=== PATIENT | male | born 1955 | race Caucasian/White ===

== ENCOUNTER 2018-05-04 11:37 | Inpatient (IN) | payer MEDICARE, BC ==
[~2018-05-04] VITALS: Ht 175.3 cm; Wt 60.7 kg
[2018-05-04] VITALS (8 sets, daily range): BP systolic 99–128; BP diastolic 21–75
[2018-05-04] MEDS ORDERED: XANAX1 MG PO (11:47)
[2018-05-04] MEDS ORDERED: AMOXICILLIN 50500 MG PO (11:47)
[2018-05-04] MEDS ORDERED: ASPIR 8181 MG PO (11:47)
[2018-05-04] MEDS ORDERED: INCRUSE ELLI62.5 MCG INH (11:48)
[2018-05-04] MEDS ORDERED: ROSADAN45 GM TOP (11:48)
[2018-05-04] MEDS ORDERED: CLOTRIMAZOLE 1%15 G1 TOP (11:48)
[2018-05-04] MEDS ORDERED: ELOCON15 G1 TOP (11:49)
[2018-05-04] MEDS ORDERED: SYMBICORT160 MCG/4. INH (11:49)
[2018-05-04] MEDS ORDERED: VITAMIN D3400 UNIT PO (11:50)
[2018-05-04] MEDS ORDERED: VENTOLIN HFA 1818 GM INH (11:50)
[2018-05-04 12:04] LABS: HEMATOCRIT 43.3 % (42.0-52.0); HEMOGLOBIN 13.8 gm/dL (14.0-18.0); MCH 29.7 pg (26.0-34.0); MCHC 31.8 g/dL (28.0-37.0); MCV 93.4 fL (80.0-100.0); MPV 9.4 fl. (7.2-11.1); NUCLEATED RBCS 0 /100WBC; PLATELET COUNT* 192 thou/uL (150-400); RBC 4.63 mil/uL (4.50-6.00); RDW-CV 13.4 % (10.5-14.5); WBC 7.5 thou/uL (4.0-11.0)
--- NOTE | 2018-05-04 12:14 | NUR ---
WHEN DR. CHANDLER ASKED THE PATIENT IF HE WOULD GIVE CONSENT TO BEING INTUBATED IF THAT WERE TO HAPPEN, THE PATIENT REFUSED BY SAYING, "I DO NOT WANT TO BE INTUBATED. I DO NOT WANT TO BE RESUSCITATED."
[2018-05-04 12:31] LABS: URINE BILIRUBIN NEGATIVE (Negative); URINE BLOOD 1+ (Negative); URINE CLARITY CLEAR; URINE COLOR DARK YELLOW; URINE GLUCOSE-RANDOM NEGATIVE (Negative); URINE KETONES 1+ (Negative); URINE LEUKOCYTES-REFLEX NEGATIVE (Negative); URINE NITRITE-REFLEX NEGATIVE (Negative); URINE PROTEIN NEGATIVE (Negative); URINE SPECIFIC GRAVITY >= 1.030 (1.005-1.030); URINE UROBILINOGEN 0.2 E.U./dl (0.2-1.0)
[2018-05-04 12:32] LABS: BUN 13 mg/dL (7-18); CALCIUM 8.9 mg/dL (8.5-10.1); CHLORIDE 91 mmol/L (98-107); CREATININE 0.6 mg/dL (0.6-1.3); GLUCOSE 171 mg/dL (70-99); POTASSIUM 4.5 mmol/L (3.5-5.1); SODIUM 135 mmol/L (136-145)
[2018-05-04 12:33] LABS: CO2 > 45 mmol/L (21-32)
[2018-05-04 12:37] LABS: ALKALINE PHOSPHATASE 101 U/L (46-116); MAGNESIUM 1.8 mg/dL (1.8-2.4); SGOT 26 U/L (15-37); SGPT 48 U/L (30-65); TOTAL BILIRUBIN 0.5 mg/dL (<0.1-1.0); TOTAL PROTEIN 7.4 g/dL (6.4-8.2)
[2018-05-04 12:40] LABS: BACTERIA-REFLEX 1-9 Few /HPF (None Seen); CASTS None Seen /LPF (None Seen); CRYSTALS None Seen /LPF (None Seen); SQUAMOUS 0-3 Few /LPF (0-3); URINE RBC 3-10 Few /HPF (0-2); URINE WBC-REFLEX 0-5 Rare /HPF (0-5)
[2018-05-04 12:51] LABS: ABSOLUTE LYMPHOCYTES 0.3 thou/uL (0.8-5.3); ABSOLUTE MONOCYTES 0.2 thou/uL (0.0-1.2); ABSOLUTE NEUTROPHILS 7.1 thou/uL (1.6-8.1); ATYPICAL LYMPHS 1 %; PLATELET ESTIMATE ADEQUATE
[2018-05-04 12:58] LABS: BE 15.5 mmol/L (-2 to +3)
[2018-05-04 12:59] LABS: HCO3 49.7 mmol/L (22.0-26.0); PCO2 131.8 mmHg (35.0-45.0); PO2 216.4 mmHg (75.0-100.0); pH 7.194 (7.340-7.450)
[2018-05-04 14:56] LABS: BE 11.5 mmol/L (-2 to +3); PO2 75.5 mmHg (75.0-100.0); pH 7.268 (7.340-7.450)
[2018-05-04 14:59] LABS: HCO3 42.6 mmol/L (22.0-26.0); PCO2 95.4 mmHg (35.0-45.0)
--- NOTE | 2018-05-04 15:11 | EKG ---
[place] [address] ELECTROCARDIOGRAM REPORT Name: BRIONNA RACHEL Room: [address] ADM IN .R.#: [id number] Admission: 05/04/18 Attend Phys: Bethany Bajwa MD Discharge: Date of : 55 Report #: [id number] THIS REPORT FOR: //name// [facility] ED Test Date: 2018-05-04 Test Time: 11:50:17 Pat Name: BRIONNA RACHEL Department: Room: [facility] Gender: M Senior Market Intelligence Consultant: HAWK : 1955 Requested By: GERALDINE Order Number: [id number] Tatum MD: Link Reis Measurements Intervals [place] Rate: 101 P: 87 AR: 133 QRS: 71 QRSD: 86 T: 32 QT: 343 QTc: 445 Interpretive Statements Sinus tachycardia Consider right atrial enlargement Baseline wander in lead(s) V5 No previous ECG available for comparison Electronically Signed On 05-04-2018 15:11:49 RESTAURANT ASSOCIATE by Link Reis [email or web address] <ELECTRONICALLY SIGNED> By: Link Reis MD, [facility] 05/04/18 1511 1150 1150 Link Reis MD, FAC /EPI
--- NOTE | 2018-05-04 19:32 | NUR ---
CATHETER PLACED BY DR PENA, UROLOGY, WITH SOME BLEEDING. SPOKE TO DR PENA REGARDING LOVENOX AND ASA 81MG ORDERED TO BE GIVEN THIS EVENING, HE STATES OK TO GIVE.
[2018-05-05] VITALS (22 sets, daily range): BP systolic 102–156; BP diastolic 43–90
[2018-05-05 04:43] LABS: HEMATOCRIT 39.1 % (42.0-52.0); HEMOGLOBIN 12.7 gm/dL (14.0-18.0); MCH 29.6 pg (26.0-34.0); MCHC 32.4 g/dL (28.0-37.0); MCV 91.6 fL (80.0-100.0); MPV 9.2 fl. (7.2-11.1); RBC 4.27 mil/uL (4.50-6.00); RDW-CV 13.1 % (10.5-14.5); WBC 9.3 thou/uL (4.0-11.0)
[2018-05-05 05:27] LABS: ALBUMIN 3.6 g/dL (3.4-5.0); CALCIUM 9.3 mg/dL (8.5-10.1); CREATININE 0.5 mg/dL (0.6-1.3); MAGNESIUM 1.8 mg/dL (1.8-2.4); POTASSIUM 4.7 mmol/L (3.5-5.1); TOTAL BILIRUBIN 0.7 mg/dL (<0.1-1.0); TOTAL PROTEIN 6.2 g/dL (6.4-8.2)
--- NOTE | 2018-05-05 05:48 | NUR ---
VSS. TOLERATED BIPAP WELL THROUGHOUT THE NIGHT. SOME ANXIETY R/T MASK, SCHEDULED XANAX AND PRN ATIVAN GIVEN ORDERED WITH RELIEF OF SYMPTOMS. PT HAS DENIED PAIN. O2 SAT DROPS TO 80'S WHEN BIPAP REMOVED FOR MORE THAN A FEW MINUTES FOR MEDICATION ADMINISTRATION AND ORAL CARE. PT REPOSITIONS SELF IN BED, STATES HE PREFERS LEFT SIDE WORK OF BREATHING IS LESS ON LEFT. EDUCATION PROVIDED ON PRESSURE RELIEF, VERBALIZED UNDERSTANDING. ADEQUATE STRENGTH IN UPPER AND LOWER EXTREMITIES TO SIT SELF VERTICALLY AND LIFT BODY ON ARMS TO MOVE IN BED. CALL LIGHT WITHIN REACH.
[2018-05-05 09:17] LABS: BE 16.7 mmol/L (-2 to +3); PO2 86.4 mmHg (75.0-100.0); pH 7.385 (7.340-7.450)
[2018-05-05 09:23] LABS: HCO3 45.7 mmol/L (22.0-26.0); PCO2 78.1 mmHg (35.0-45.0)
--- NOTE | 2018-05-05 16:02 | NUR ---
Received order for PICC placement. Consent obtained per PACKING MACHINE PILOT CAN ROUTER. Chart and labs reviewed. Pt placed in supine position and a sterile field placed as per facility guidelines. (R) UA cleansed as per guideline and [place] 1% given subq. Venous access obtained via US and guidewire introduced without problems. PICC cut and introduced into the vessel with electronic prepress technician. Placement confirmed with 3ecg technology. Pt prior to procedure tachcardic and per ecg hard to confirm pwaves. PICC secured and a PCXR ordered.
--- NOTE | 2018-05-05 16:33 | NUR ---
PICC IN THE LOWER MID C AND IS CLEARED FOR IMMEDIATE USE. POULTRY OFFAL WORKER REMY MELVIN.
[2018-05-05 22:35] LABS: BE 12.5 mmol/L (-2 to +3); pH 7.322 (7.340-7.450)
[2018-05-05 22:37] LABS: HCO3 42.1 mmol/L (22.0-26.0); PCO2 83.3 mmHg (35.0-45.0); PO2 243.7 mmHg (75.0-100.0)
--- NOTE | 2018-05-05 23:02 | NUR ---
AT 2150, PT O2 SAT DROPPED TO 76% WHILE ON BIPAP. PT OBSERVED BEING IN SUPINE POSITION, USING ACCESSORY MUSCLES STRUGGLING TO BREATHE. PT PLACED ON NONREBREATHER MASK AT 15L. RESPIRATORY PAGED IMMEDIATELY. STAT CXR ORDERED, STAT ABGS ORDERED. RESULTS RECEIVED, DR. SWANSON NOTIFIED AT 2301. PT TO HAVE CXR AND REPEAT ABGS IN AM. OK FOR PATIENT TO BE ON AVAPS MODE. PT'S VSS AT THIS TIME. RESPIRATORY IN ROOM WITH PATIENT.
[2018-05-06] VITALS (12 sets, daily range): BP systolic 119–136; BP diastolic 72–91
[2018-05-06 04:57] LABS: HEMOGLOBIN 11.3 gm/dL (14.0-18.0); MCH 29.4 pg (26.0-34.0); MCHC 31.3 g/dL (28.0-37.0); MCV 93.8 fL (80.0-100.0); MPV 10.6 fl. (7.2-11.1); RBC 3.84 mil/uL (4.50-6.00); RDW-CV 13.6 % (10.5-14.5)
[2018-05-06 05:11] LABS: ALKALINE PHOSPHATASE 65 U/L (46-116); BUN 27 mg/dL (7-18); CALCIUM 8.9 mg/dL (8.5-10.1); CHLORIDE 86 mmol/L (98-107); CO2 39 mmol/L (21-32); CREATININE 0.6 mg/dL (0.6-1.3); GLUCOSE 160 mg/dL (70-99); SGOT 25 U/L (15-37); SGPT 45 U/L (30-65); TOTAL BILIRUBIN 0.4 mg/dL (<0.1-1.0); TOTAL PROTEIN 5.7 g/dL (6.4-8.2)
[2018-05-06 05:22] LABS: ANION GAP < 0 mmol/L (7-16); SODIUM 124 mmol/L (136-145)
[2018-05-06 05:23] LABS: POTASSIUM 6.9 mmol/L (3.5-5.1)
[2018-05-06 06:19] LABS: ALBUMIN 3.2 g/dL (3.4-5.0); CREATININE 0.6 mg/dL (0.6-1.3); TOTAL BILIRUBIN 0.4 mg/dL (<0.1-1.0); TOTAL PROTEIN 6.1 g/dL (6.4-8.2)
[2018-05-06 06:22] LABS: POTASSIUM 4.6 mmol/L (3.5-5.1)
[2018-05-06 06:55] LABS: pH 7.406 (7.340-7.450)
--- NOTE | 2018-05-06 07:22 | NUR ---
ASSUMED PT CARE AT 1930. NURSING ASSESSMENT COMPETED Q4H. SR/ST ON MANUFACTURING QUALITY INSPECTOR. PT ON BIPAP THIS SHIFT. DENIES PAIN. PT O2 SAT DROPPED TO 30'S AT APPROX 0430 AFTER CHEST CXR. RT CALLED, O2 UP ABOVE 90 AFTER BIPAP ADJUSTMENTS. PT RESTING IN HIGH FOWLERS AT THIS TIME. NEGATIVE SEPSIS SCREENING.
--- NOTE | 2018-05-06 08:05 | CON ---
[address] [address] CONSULTATION Name: WILSONBRIONNA Silvia Room: [address] IN M.R.#: [id number] Admission: 05/04/18 Attend Phys: Bethany Bajwa MD Discharge: Date of : 55 Report #: [id number] THIS REPORT FOR: //name// CC: Juanito Bajwa REASON FOR CONSULTATION: Respiratory failure. HISTORY OF PRESENT ILLNESS: The patient was on the BiPAP during my evaluation, although he was awake, trying to provide history, but history is limited because of the mask in place and the fact that he gets tachypneic when he tries to talk. However, I was able to tell from the history and reviewing the records that he has advanced stage COPD and he is at baseline oxygen. He denied any PAP therapy at home. He told me he sees a die cutter diamond in [place], [place]. He presented to the hospital with increasing shortness of breath through the Emergency Room. Apparently, his symptoms worsened over the course of the day yesterday and he was not able to speak more than 1-2 sentences. He had difficulty moving air and he was placed on CPAP immediately. His O2 saturation on room air was 86%, but improved to 100% on CPAP per EMS. Also there was a report that stated mental status change. The patient told me that he had a wheeze. Not much of a cough, no sputum production. He feels congested. He feels the BiPAP helps his breathing at this point. Discussed with RN. He remains n.p.o. They were unable to take him off BiPAP now because of need for BiPAP support. He was seen moving in the bed. His mental status seems to be improving. Again communication was difficult because of the BiPAP mask. PAST MEDICAL HISTORY: History of chronic respiratory failure; COPD, on home oxygen and history of hypertension. PAST SURGICAL HISTORY: No major chest surgery. HOME MEDICATIONS: He is on aspirin, Symbicort and albuterol inhaler. Also, he is on alprazolam and amoxicillin. FAMILY HISTORY: Reviewed with the patient and pertinent to the above chief complaint. SOCIAL HISTORY: The patient told me he quit smoking years ago after a long time history of smoking. REVIEW OF SYSTEMS: Review of systems was attempted, however, is limited because of the patient's condition and the BiPAP mask. We could not take the BiPAP mask because of the patient's respiratory distress. He denied any lower extremity pain, calf tenderness or swelling. He denied any chest pain for me. PHYSICAL EXAMINATION: VITAL SIGNS: On examination, he was on 30% BiPAP with saturation 98% [place] [address] CONSULTATION Name: BRIONNA RACHEL Room: [address] IN ..#: [id number] Admission: 05/04/18 Attend Phys: Bethany Bajwa MD Discharge: Date of : 55 Report #: [id number] monitor, blood pressure 120/70, pulse rate of 100 and temperature 36.7. GENERAL: Elderly gentleman on the BiPAP. HEENT: Head normocephalic, atraumatic. Pupils reactive to light. Opened eyes, tracked. Seems to be awake, alert. External ears look healthy and normal. Oral cavity not examined. I did not take the BiPAP mask from place. NECK: Supple. No palpable lymph nodes. No palpable thyroid. Trachea is central. CHEST: Diminished air movement bilaterally, prolonged expiratory phase, some occasional end-expiratory wheeze, nontender. HEART: S1, S2, tachycardic. ABDOMEN: Benign, soft, lax and nontender. Positive bowel sounds. No masses felt. No rebound, no rigidity. EXTREMITIES: Lower extremity, no edema noted. No calf tenderness. SKIN: No rash noted. No lumps. PSYCHIATRIC: Mood and affect, limited evaluation. NEUROLOGIC: Moving 4 extremities spontaneously. No focal weakness. Cranial nerves difficult to assess with the BiPAP mask in place. LYMPHATICS: No palpable lymph node. LABORATORY DATA: ABGs: He had multiple sets of ABGs reviewed, demonstrating hypercapnic respiratory failure. His creatinine is 0.5, BUN of 13, potassium 3.7 and sodium 138. He had a chest x-ray done in the ER that showed hyperinflation. No definite infiltrates. IMPRESSION: 1. Acute hypoxic and hypercapnic respiratory failure on chronic. 2. Chronic obstructive pulmonary disease exacerbation. 3. Respiratory distress. 4. Bronchospasm. PLAN: At this point, the patient is tolerating the BiPAP with good tidal volume; he was pulling almost 1 liter and his mental status is improving. We would continue the aggressive IV steroids, continue the vancomycin and Rocephin. He is on DVT prophylaxis. Continue scheduled nebulization treatments. Down the road, start weaning him off the BiPAP slowly to see if he can hold his oxygen at low level work of breathing so we might consider start feeding him. However, I would continue the current BiPAP support. He needs to follow up ABGs. We will do a chest x-ray in the morning and ABG in the morning. Thank you for the consult. We will follow along with you. Code status noted. [address] [place] [address] CONSULTATION Name: WILSONBRIONNA Silvia Room: [address] IN [facility]#: [id number] Admission: 05/04/18 Attend Phys: Bethany Bajwa MD Discharge: Date of : 55 Report #: [id number] Critical care time 35 minutes. <ELECTRONICALLY SIGNED> By: Chandra Jasso MD 05/06/18 0805 0826 [id number] Jasso MD /nt
[2018-05-06 10:39] LABS: HCO3 44.1 mmol/L (22.0-26.0); PCO2 71.8 mmHg (35.0-45.0); PO2 58.8 mmHg (75.0-100.0)
--- NOTE | 2018-05-06 18:38 | NUR ---
PATIENT NOT PROGRESSING WELL TOWARDS GOALS. UNABLE TO COME OFF THE BIPAP AT ALL THIS SHIFT OTHER THAN SHORT MOUTH SWABS. UNABLE TO TAKE PO PILLS THIS SHIFT. IV ANTIBIOTICS AND STERIODS GIVEN THIS SHIFT. 2 DOSES OF MORIPHINE GIVEN FOR AIR HUNGER THIS SHIFT. DAUGHTERS WILL BE IN TOMORROW AROUND 8AM TO SPEAK WITH PHYSICIANS ABOUT QUALITY OF LIFE AND PROGNOSIS OF PATIENT. VERY REALISTIC ON PATIENTS CONDITION AND AWARE HE IS NOT DOING BETTER IN THE LAST 2 DAYS. WILL CONTINUE TO MONITOR AND CONTINUE BIPAP WITH MORIPHINE PRN FOR AIR HUNGER. IUSS ANALYST IN PLACE, CALL LIGHT IN REACH, FALL PRECAUTIONS IN PLACE.
[2018-05-07] VITALS (20 sets, daily range): BP systolic 117–165; BP diastolic 74–109
[2018-05-07 04:19] LABS: HEMATOCRIT 36.6 % (42.0-52.0); HEMOGLOBIN 11.6 gm/dL (14.0-18.0); MCH 28.9 pg (26.0-34.0); MCHC 31.5 g/dL (28.0-37.0); MCV 91.8 fL (80.0-100.0); RBC 3.99 mil/uL (4.50-6.00); RDW-CV 13.4 % (10.5-14.5); WBC 11.7 thou/uL (4.0-11.0)
[2018-05-07 04:27] LABS: CALCIUM 8.6 mg/dL (8.5-10.1); CREATININE 0.6 mg/dL (0.6-1.3); MAGNESIUM 2.4 mg/dL (1.8-2.4); POTASSIUM 4.2 mmol/L (3.5-5.1)
--- NOTE | 2018-05-07 05:24 | NUR ---
PT AAOX4. HAS SLEPT VERY LITTLE THIS SHIFT. RESP REG AND LABORED, SKIN W/D, SOB WITH EXERTION. IF BIPAP OFF MOR ALESHA A COUPLE OF SECONDS, PT DESATS RAPIDLY INTO THE 70'S. ARGUETA INTACT AND PATNET DRAINING PINK TINGED URINE TO BEDSDIE BAG. PROFESSOR OF LAW INTACT WITH ALARMS SET. VSS AND NO ACUTE CHANGES THIS SHIFT. WILL CONTINUE TO MONITOR. PT REFUSES TO BE TURNED, CAITY ONLY LAY ON LEFT SIDE. BIPAP INTACT WITH SETTINGS OF TIDAL VOLUME 450, RATE 14, EPAP 16, FIO2 40%. MINIMUM PRESSURE 20AND MAXIMUM PRESSURE 30. PT IS TOLERATING BIPAP WELL. L GREAT TOE IS RED SWOLLEN AND WARM TO TOUCH. PT DENIES HAVING HISTORY OF GOUT.
[2018-05-07 06:41] LABS: BE 10.3 mmol/L (-2 to +3); HCO3 38.5 mmol/L (22.0-26.0); PO2 93.6 mmHg (75.0-100.0); pH 7.353 (7.340-7.450)
[2018-05-07 06:44] LABS: PCO2 70.9 mmHg (35.0-45.0)
--- NOTE | 2018-05-07 10:57 | NUR ---
ICU ROUNDS: RN IN-CHARGE OF PATIENT INFORMS THAT THE PATIENT IS AWAKE, ALERT, AND ORIENTED. PATIENT CURRENTLY ON THE BIPAP AND RECIEVEING TPN. PATIENT REQUESTING COMFORT CARE, BUT NURSING INFORMS THAT THAT THAT WILL BE DETERMINED OVER THE NEXT 24 HOURS. CM WILL REMAIN AVIALABLE TO ASSIST AND FOLLOW NEEDED.
--- NOTE | 2018-05-07 19:04 | NUR ---
PATIENT SOMEWHAT PROGRESSING WELL TOWARDS GOALS. TOLERATING BIPAP WITH SMALL IMPROVEMENTS. BATH DONE TODAY, SUGARS MAINTAINED WITH MINIMAL INSULIN. DAUGHTERS SPOKE IN DEPTH WITH DR LOMAS AND APRIL THIS SHIFT. ALL QUESTIONS ANSWERED. ABLE TO CONVINCE PATIENT TO REPOSITION A COUPLE TIMES TO HELP WITH SKIN INTEGRITY. VERY ALERT AND AGREEABLE THIS SHIFT. VOICES ANXIETY AND AIR HUNGER AND MORIPHINE AND ATIVAN IV GIVEN. BED IN LOWEST POSITON, CALL LIGHT IN REACH, MAJOR SALES ASSOCIATE IN PLACE.
[2018-05-08] VITALS (22 sets, daily range): BP systolic 123–178; BP diastolic 78–95
[2018-05-08 03:33] LABS: HEMATOCRIT 37.9 % (42.0-52.0); HEMOGLOBIN 11.9 gm/dL (14.0-18.0); MCH 29.2 pg (26.0-34.0); MCHC 31.3 g/dL (28.0-37.0); MCV 93.1 fL (80.0-100.0); MPV 9.8 fl. (7.2-11.1); RBC 4.07 mil/uL (4.50-6.00); RDW-CV 13.6 % (10.5-14.5); WBC 14.5 thou/uL (4.0-11.0)
[2018-05-08 03:49] LABS: ALBUMIN 3.4 g/dL (3.4-5.0); ALKALINE PHOSPHATASE 66 U/L (46-116); BUN 26 mg/dL (7-18); CALCIUM 8.6 mg/dL (8.5-10.1); CHLORIDE 97 mmol/L (98-107); CREATININE 0.6 mg/dL (0.6-1.3); GLUCOSE 208 mg/dL (70-99); MAGNESIUM 2.4 mg/dL (1.8-2.4); POTASSIUM 4.7 mmol/L (3.5-5.1); SGOT 53 U/L (15-37); SGPT 104 U/L (30-65); SODIUM 141 mmol/L (136-145); TOTAL BILIRUBIN 0.7 mg/dL (<0.1-1.0); TOTAL PROTEIN 6.2 g/dL (6.4-8.2)
[2018-05-08 04:03] LABS: CO2 > 45 mmol/L (21-32)
[2018-05-08 06:12] LABS: BE 17.2 mmol/L (-2 to +3); PO2 64.7 mmHg (75.0-100.0); pH 7.317 (7.340-7.450)
[2018-05-08 06:15] LABS: HCO3 48.1 mmol/L (22.0-26.0); PCO2 96.1 mmHg (35.0-45.0)
--- NOTE | 2018-05-08 10:45 | NUR ---
NO FAMILY HERE AT THIS TIME. PER NURSING, DTRS TO BE HERE LATER AND WANT TO TALK TO CASE MGT ABOUT DISCHARGE OPTIONS. ASKED NURSING TO CALL WHEN DTRS ARE HERE.
--- NOTE | 2018-05-08 17:55 | NUR ---
PATIENT SOMEWHAT PROGRESSING WELL TOWARDS GOALS TODAY. ABLE TO TRY HIGH FLOW HUMIDIFIER NASAL CANULA FOR 2 HOURS TOTAL TODAY AT TWO DIFFERENT TIMES. HE IS HAVING SOME HALLUCINATIONS BUT IS EASILY REDIRECTABLE AND HAS HAD MULTIPLE NAPS TODAY AND DONE WELL. SUGARS REMAINED UNDER 200 WITH MODERATE DOSE SLIDING SCALE. TPN TONIGHT WILL HAVE 10 UNITS OF INSULIN ADDED TO IT. FACE WASHED AND EYE DROPS APPLIED. FREQUENT MOUTH CARE. TOLERATED NO BIPAP WITH MOUTH CARE FOR 5 MINS TOTAL WELL TODAY BEFORE HE DROPPED HIS SATS. DAUGHTERS VISTED THIS AFTERNOON, WILL BE BACK LATER. PATIENT DENIES ANY PAIN, NAUSEA, VOMITTING OR SHORTNESS OF AIR AT THIS TIME. LEIF AND LINDA ATIVAN GIVEN THIS SHIFT. BED IN LOWEST POSITION, CALL LIGHT IN REACH, AIRPLANE ELECTRICIAN IN PLACE.
[2018-05-09] VITALS (9 sets, daily range): BP systolic 128–157; BP diastolic 73–109
[2018-05-09 04:08] LABS: HEMATOCRIT 36.4 % (42.0-52.0); HEMOGLOBIN 11.5 gm/dL (14.0-18.0); MCH 29.5 pg (26.0-34.0); MCHC 31.6 g/dL (28.0-37.0); MCV 93.4 fL (80.0-100.0); MPV 10.1 fl. (7.2-11.1); RBC 3.9 mil/uL (4.50-6.00); RDW-CV 13.6 % (10.5-14.5); WBC 13.5 thou/uL (4.0-11.0)
[2018-05-09 04:20] LABS: BE 12.9 mmol/L (-2 to +3); PO2 63.1 mmHg (75.0-100.0)
[2018-05-09 04:24] LABS: ALBUMIN 3.2 g/dL (3.4-5.0); ALKALINE PHOSPHATASE 62 U/L (46-116); BUN 27 mg/dL (7-18); CALCIUM 8.5 mg/dL (8.5-10.1); CHLORIDE 101 mmol/L (98-107); CREATININE 0.5 mg/dL (0.6-1.3); GLUCOSE 209 mg/dL (70-99); SGOT 66 U/L (15-37); SGPT 185 U/L (30-65); SODIUM 141 mmol/L (136-145); TOTAL BILIRUBIN 0.9 mg/dL (<0.1-1.0); TOTAL PROTEIN 5.9 g/dL (6.4-8.2)
[2018-05-09 04:25] LABS: HCO3 44.7 mmol/L (22.0-26.0); PCO2 106.4 mmHg (35.0-45.0); pH 7.241 (7.340-7.450)
[2018-05-09 04:27] LABS: CO2 > 45 mmol/L (21-32)
--- NOTE | 2018-05-09 05:23 | NUR ---
PT RESTING QUIETLY. RESP REG AND UNALBORED SKIN W/D NO ACUTE DISTRESS NOTED. BIPAP INTACT WITH SETTINGS TV 450, RATE 14, FIO2 45% EPAP 6, MIN PRESSURE 20 MAXIMUM PRESSURE 30. PT HAS EPISODES OF HALLUCINATIONS AT TIMES. PT IS ABLE TO BE REORIENTED BUT IS UNAWARE OF HALLUCINATIONS. ARGUETA INTACT AND PATENT DRAINING DK WAYNE URINE TO BEDSIDE BAG. CARIDAC MONTIOR INTACT WITH ALARMS SET. VSS AND NO ACUTE CHANGES DURING SHIFT. CRITICAL ABGS RECEIVED AND RESULTS CALLED TO DR MORILLO AND NO NEW ORDERS RECEIVED AT THIS TIME. WILL CONTINUE TO MONITOR. TPN INSUFING AT 80CC/HR VIA PUMP ORDERED.
--- NOTE | 2018-05-09 10:06 | NUR ---
RECEIVED REPORT FROM ARIS TRAMMELL. ASSESSMENT CHARTED. AFEBRILE. PT IS DNR/DNI. DR GUZMÁN SPOKE WITH DAUGHTERS ABOUT PT STATUS PROBABLY NOT IMPROVING. DAUGHTERS UNDERSTAND. PT NOW TELE STATUS. WILL CONTINUE TO MONITOR.
--- NOTE | 2018-05-09 10:10 | NUR ---
CONTINUE TO FOLLOW, PT REMAINS ON CONTINUOUS BIPAP. NO FAMILY HERE BUT PER ARIS ZAPATA DTRS HAVE VISITED AND AWARE OF PT'S PROGNOSIS. PT TO TRANSFER TO TELEMETRY TODAY. WILL TRY TO SEE FAMILY LATER
--- NOTE | 2018-05-09 17:19 | NUR ---
PT MED/TELE STATUS. REPORT GIVEN TO ARIS BENSON. ALL QUESTIONS ANSWERED. FAMILY UPDATED ON PLAN OF CARE. PT TRANSFERRED TO 318 ON BIPAP WITH RT AND RN.
--- NOTE | 2018-05-09 18:48 | NUR ---
ASSUMMED CARE OF PT UPON TRANSFER TO UNIT AT 1745, PT ALERT AND ORINETED X3 BIPAP ON, O2 SAT 98%, MEDICATED X 1 FOR LABORED BREATHING PER FAMILY REQUEST, TRIPLE LUMIN PICC WITH GD BLOOD RETURN, TPN INFUSING AT 80cc PER HOUR, ARGUETA PATENT AND DRAINING WAYNE URINE, SOME BLOODY DRAINAGE NOTE AROUND MEATUS, PT TURNED ONTO LEFT SIDE, EDEMA IN BILATERAL HANDS, MORE ON RIGHT, ELEVATED, BONY PROMINENCES BECOME REDDENED EASILY, PILLOWS PLACED, TELE SHOWS SINUS TACH, AFEBRILE, ASSESSMENT COMPLETE, WILLCONTINUE TO MONITOR.
[2018-05-10] VITALS: BP 144/85
[2018-05-10 04:00] VITALS: BP 149/86
[2018-05-10 05:46] LABS: MCH 29.4 pg (26.0-34.0); MCHC 31.5 g/dL (28.0-37.0); MCV 93.3 fL (80.0-100.0); MPV 10.2 fl. (7.2-11.1); RBC 3.75 mil/uL (4.50-6.00); RDW-CV 13.6 % (10.5-14.5); WBC 10.3 thou/uL (4.0-11.0)
[2018-05-10 05:48] LABS: BE 13.3 mmol/L (-2 to +3); PO2 95.6 mmHg (75.0-100.0)
[2018-05-10 05:52] LABS: HCO3 43.3 mmol/L (22.0-26.0)
[2018-05-10 06:01] LABS: ALKALINE PHOSPHATASE 62 U/L (46-116); BUN 31 mg/dL (7-18); CALCIUM 8.6 mg/dL (8.5-10.1); CHLORIDE 102 mmol/L (98-107); CREATININE 0.5 mg/dL (0.6-1.3); GLUCOSE 157 mg/dL (70-99); MAGNESIUM 2.4 mg/dL (1.8-2.4); SGOT 90 U/L (15-37); SGPT 303 U/L (30-65); SODIUM 146 mmol/L (136-145); TOTAL BILIRUBIN 1.2 mg/dL (<0.1-1.0); TOTAL PROTEIN 5.7 g/dL (6.4-8.2)
[2018-05-10 06:04] LABS: CO2 > 45 mmol/L (21-32)
--- NOTE | 2018-05-10 06:22 | NUR ---
PT SLEPT ON AND OFF THIS SHIFT. ASSESSMENT DOCUMENTED. MEDS GIVEN PER E-AUG. PICC PATENT, TPN INFUSING. BIPAP REMAINED INPLACE, REMOVED ONLY FOR ORAL CARE THIS SHIFT. PT REFUSED MOST REPOSITIONS, BUT MOVES SELF IN BED, PT PREFERS TO STAY ON HIS LEFT SIDE. PT HAD PERIODS OF CONFUSION THIS SHIFT ASKING WHY HE WAS ON HIS BIPAP. WILL CONTINUE WITH PLAN OF CARE.
--- NOTE | 2018-05-10 17:55 | NUR ---
PATIENT HAS BEEN ALERT MOST OF THE DAY WITH FAMILY AT BEDSIDE. BIPAP IN PLACE ALL DAY. FAMILY REFUSED HAVING PATIENTS VITALS TAKEN TODAY, ALSO REQUESTED BLOOD SUGARS BE TAKEN ONLY ONCE DAILY AND NO MORE BLOOD GASSES TO BE DONE. FAMILY IS CONSIDERING COMFORT CARE FOR PATIENT. FREQUENT CHECKS ON PATIENT, CALL LIGHT IS IN REACH, WILL CONTINUE TO MONITOR.
[2018-05-10 21:00] VITALS: BP 136/78
--- NOTE | 2018-05-11 05:25 | NUR ---
PT SLEPT OFF AND ON OVERNIGHT, BIPAP ON AND ALARMING OCCASIONALLY- MASK READJUSTED BY STAFF AND RT PERSONNEL WITH FREQUENT ROUNDS TO CHECK ON PT AND ADJUST BIPAP. PT AO TO SELF AND SITUATION, CONFUSED AT TIMES OVERNIGHT. REORIENTED AND REASSURANCE GIVEN. TPN INFUSING R PICC, ABX GIVEN ORDERED. RECEIVING SCHEDULED AND PRN ATIVAN FOR RESTLESSNESS, AND PRN MORPHINE FOR AIR HUNGER WITH FAIR RESULT. HS ACCUCHECK 214, INSULIN GIVEN. VSS. O2 SAT 98%. ARGUETA DRAINING YELLOW URINE. PT REFUSING TURNS AND REPOSITIONG BY STAFF, SET OFF BED ALARM ONCE TRYING TO SIT UP IN BED-REPOSITIONED FOR COMFORT. EDEMA TO EXTREMITIES, BRUISING. RECEIVING RT TX AND SOLUMEDROL ORDERED. ORAL CARE GIVEN PT WOULD ALLOW WITH SWABS AND MOUTH MOISTURIZER. NPO. DNR.BED ALARM ON FOR SAFETY.
[2018-05-11 08:50] LABS: BE 15.2 mmol/L (-2 to +3); PO2 88.1 mmHg (75.0-100.0)
[2018-05-11 08:52] LABS: HCO3 43.7 mmol/L (22.0-26.0); PCO2 79.2 mmHg (35.0-45.0)
--- NOTE | 2018-05-11 17:38 | NUR ---
PATIENT HAS BEEN ALERT PART IHE DAY AND VISITING WITH FAMILY. BIPAP ON CONTINOUSLY. PATIENT HAS HAD SOME EPISODES OF CONFUSION AND HALLUCINATIONS. PATIENT CHANGED TO CONFORT PER FAMILY REQUEST. PICC RIGHT UPPER ARM WITH TPN RUNNING AND FOR IV MEDICATIONS. FAMILY AND PATIENT HAVE REQUESTED TO NOT HAVE VITALS SIGNS OR BLOOD SUGARS DONE. PATIENT IS RESTING COMFORTABLY NOW WITH FAMILY AT BEDSIDE.
[2018-05-12 16:00] VITALS: BP 139/74
--- NOTE | 2018-05-12 17:52 | NUR ---
PATIENT HAS BEEN ALERT PART OF THE DAY VISITING WITH FAMILY. ON 5 LITERS OF OXYGEN THROUGH NASAL CANNULA. HAVE GIVEN PRN MEDS TODAY TO HELP WITH AIR HUNGER. FAMILY DOES NOT WANT VITALS OR LABS DONE. REPOSOTIONING DONE AT FAMILY REQUEST. ARGUETA IS IN PLACE AND PICC LINE IS IN RIGHT UPPER ARM. FAMILY IS AT BEDSIDE AND PLAN ON STAYING THE NIGHT. CALL LIGHT IS IN REACH, FREQUENT CHECKS, WILL CONTINUE TO MONITOR.
--- NOTE | 2018-05-13 05:27 | NUR ---
PATIENT RESTING QUIETLY WITH FAMILY REQUESTED MEDICATION Q1H TONIGHT. FAMILY REQUESTING NO BP, ACCUCHECKS, STICKS OF ANY KIND, IVF'S(TPN) OR TURNS. SCHEDULED MEDS ONLY AT FAMILY DIRECTION. COMFORT CARE. CONTINUE TO MONITOR.
--- NOTE | 2018-05-13 19:36 | NUR ---
PATIENT EXPRIED AT 1705. PRONOUCED BY [address] LOMAS, NURSING MAIL CARRIERS SUPERVISOR, SECURITY AND SPIRITUAL CARE NOTIFIED. FAMILY IN ROOM AT TIME OF , [facility] CHOSEN. [facility] NOTIFIED AND PATIENT DOES QUALIFY FOR DONATION. COOLING DEVICE PLACED ON PATIENT AND SALINE AND ICE APPLIED TO EYES. AWAITING CALL BACK FROM [facility] FOR DONATION ACCEPTANCE FROM FAMILY.
--- NOTE | 2018-05-13 21:34 | NUR ---
HAMILTON TRANSPLANT RETURNED CALL. ALTHOUGH PATIENT ELIGIBLE FOR DONATION, HIS ADVANCED DIRECTIVE INDICATES HE DID NOT WANT TO DONATE THUS IS NOT A CANIDATE. HOME NOTIFIED FOR PICK-UP. THEY CANNOT PICK-UP UNTIL ROADS CLEARED IN THE MORNING FROM [place]. BODY TO ROOM 325 WITH COOLING BLANKET FOR THE NIGHT. BY COMPUTER ONLY DUE TO LOGISTICS WILL BE SEEN TRANSFERED TO ROOM 116.
--- NOTE | 2018-05-14 06:57 | NUR ---
0650 PICK-UP AT THIS TIME.
== END 2018-05-13 17:05 | DRG 871 ==
LOC: M.ERS 11:37 → M.TBA-ER 13:24 → M.ICU 13:24 → M.3W 05-09 17:48 → M.ORTHSURG 05-13 21:38 → M.3W 05-13 21:38 → M.ORTHSURG 05-14 06:59
PROVIDERS: Internal Medicine; Personal Emergency Response Attendant; ADMIT Internal Medicine
PROC: 02HV33Z Insertion of Infusion Device into Superior Vena Cava, Percutaneous Approach (ICD-10-PCS; principal; 2018-05-05)
PROC: B548ZZA Ultrasonography of Superior Vena Cava, Guidance (ICD-10-PCS; principal; 2018-05-05)
PROC: 5A09557 Assistance with Respiratory Ventilation, Greater than 96 Consecutive Hours, Continuous Positive Airway Pressure (ICD-10-PCS; 2018-05-11)
DX: A41.9 Sepsis, unspecified organism (principal); J96.22 Acute and chronic respiratory failure with hypercapnia; J96.21 Acute and chronic respiratory failure with hypoxia; J44.1 Chronic obstructive pulmonary disease with (acute) exacerbation; Z51.5 Encounter for palliative care; Z66 Do not resuscitate; I10 Essential (primary) hypertension; Z87.891 Personal history of nicotine dependence; Z79.82 Long term (current) use of aspirin; Z79.899 Other long term (current) drug therapy